=== PATIENT | female | born 1965 | race Caucasian/White ===

== ENCOUNTER 2016-12-01 11:48 | Emergency (ER) | payer OTHER ==
[~2016-12-01] VITALS: Ht 162.6 cm; Wt 68.0 kg
[~2016-12-01 11:48] MED LIST: ACET325T33 PO; FOLI-49 PO; LORA-441 PO; LOSA25TA5 PO; MULT-552 PO; PANT40TA3 PO; SPIR50TA PO; THIA100T56 PO
[2016-12-01] MEDS ORDERED: SOD CHLORIDE 0.9% 1,000 ML IV STA (11:49)
[2016-12-01] MEDS ORDERED: ONDANSETRON 4 MG INJ IV STA (11:49)
[2016-12-01 11:56] VITALS: Ht 162.6 cm; Wt 68.0 kg
[2016-12-01 12:29] LABS: ABNORMAL IP MESSAGE 1; BASOPHIL # 0.1 10^3/ul (0.0-0.1); BASOPHILS % 1.1 % (0.0-2.0); EOSINOPHILS # 0.2 10^3/ul (0.0-0.5); EOSINOPHILS % 1.7 % (0.0-7.0); HEMATOCRIT 35.3 % (37.0-47.0); HEMOGLOBIN 11.9 g/dl (12.0-16.0); LYMPHOCYTES # 2.6 10^3/ul (0.8-2.9); LYMPHOCYTES % 28.4 % (15.0-51.0); MEAN CORPUSCULAR HEMOGLOBIN 32.2 pg (29.0-33.0); MEAN CORPUSCULAR HGB CONC 33.7 g/dl (32.0-37.0); MEAN CORPUSCULAR VOLUME 95.7 fl (82.0-101.0); MEAN PLATELET VOLUME 11.9 fl (7.4-10.4); MONOCYTE # 1.6 10^3/ul (0.3-0.9); MONOCYTES % 17.3 % (0.0-11.0); NEUTROPHIL # 4.6 10^3/ul (1.6-7.5); NEUTROPHILS % 51.1 % (39.0-77.0); PLATELET COUNT 137 10^3/UL (140-415); RED BLOOD COUNT 3.69 10^6/ul (4.20-5.40); RED CELL DISTRIBUTION WIDTH 16.1 % (11.5-14.5); WHITE BLOOD COUNT 9.1 10^3/ul (4.8-10.8)
[2016-12-01 12:34] LABS: POSITIVE DIFF @See below
[2016-12-01 12:41] LABS: INR 1.19; PROTIME 15.2 Sec (12.2-14.2); PT RATIO 1.2
[2016-12-01 12:42] LABS: PARTIAL THROMBOPLASTIN TIME 36.2 Sec (25.0-35.0)
[2016-12-01 12:46] LABS: ALANINE AMINOTRANSFERASE 60 IU/L (13-69); ALBUMIN 4.3 g/dl (3.3-4.9); ALBUMIN/GLOBULIN RATIO 0.95; ALKALINE PHOSPHATASE 205 IU/L (42-121); ANION GAP 24 (8-16); ASPARTATE AMINO TRANSFERASE 159 IU/L (15-46); BILIRUBIN,INDIRECT 1.4 mg/dl (0-1.1); BILIRUBIN,TOTAL 1.4 mg/dl (0.2-1.3); BLOOD UREA NITROGEN 11 mg/dl (7-20); CALCIUM 8.9 mg/dl (8.4-10.2); CARBON DIOXIDE 23 mmol/L (21-31); CHLORIDE 106 mmol/L (97-110); GLUCOSE 85 mg/dl (70-220); POTASSIUM 3.7 mmol/L (3.5-5.1); SODIUM 149 mmol/L (135-144); TOTAL PROTEIN 8.8 g/dl (6.1-8.1)
[2016-12-01 12:47] LABS: ACETAMINOPHEN < 10.0 ug/ml (10.0-30.0); SALICYLATE < 1.0 mg/dl (5.0-30.0)
[2016-12-01 13:04] LABS: ADD UMIC YES; UR ASCORBIC ACID NEGATIVE (NEGATIVE); UR BILIRUBIN (Dip) NEGATIVE (NEGATIVE); UR BLOOD (Dip) 1+ mg/dL (NEGATIVE); UR CLARITY CLEAR (CLEAR); UR COLOR STRAW (YELLOW); UR GLUCOSE (Dip) NEGATIVE (NEGATIVE); UR KETONES (Dip) NEGATIVE (NEGATIVE); UR LEUKOCYTE ESTERASE (Dip) NEGATIVE Leu/ul (NEGATIVE); UR NITRITE (Dip) NEGATIVE (NEGATIVE); UR RBC 0 /HPF (0-5); UR SPECIFIC GRAVITY (Dip) 1.003 (1.003-1.030); UR TOTAL PROTEIN (Dip) NEGATIVE (NEGATIVE); UR UROBILINOGEN (Dip) NEGATIVE (NEGATIVE)
[2016-12-01 13:16] LABS: BARBITURATES NEGATIVE (NEGATIVE); BENZODIAZEPINES NEGATIVE (NEGATIVE); CANNABINOIDS NEGATIVE (NEGATIVE); COCAINE NEGATIVE (NEGATIVE); OPIATES NEGATIVE (NEGATIVE)
[2016-12-01] MEDS ORDERED: LORA1TAB PO (13:27)
[2016-12-01] MEDS ORDERED: POTA8TAB2 PO (13:27)
[2016-12-01] MEDS ORDERED: DICL75TA2 PO (13:28)
[2016-12-01] MEDS ORDERED: GABA100C14 PO (13:28)
[2016-12-01] MEDS ORDERED: ALBU18HF INHALATION (13:29)
[2016-12-01] MEDS ORDERED: PANT20TA3 PO (13:29)
[2016-12-01] MEDS ORDERED: MAGNESIUM SULFATE 2 GM, MULTIVITAMINS 10 ML, THIAMINE 100 MG, FOLIC ACID 1 MG in SOD CH... IV STA (14:12)
[2016-12-01 17:00] VITALS: BP 110/60; PULSE 65; RESP 14; TEMP 98.2
--- NOTE | 2016-12-16 16:58 | ERD ---
DATE OF SERVICE: CHIEF COMPLAINT: Intoxication. HISTORY OF PRESENT ILLNESS: This is a 51-year-old female, who was brought into the Emergency Department via EMS after she was found walking along the sidewalk. A bystander phoned 911. The patient indicated she had consumed a significant amount of alcohol prior to arrival. EMS indicated there was no signs of trauma or drug paraphernalia. The patient states that she drinks alcohol on a daily basis and was unable to quantify the amount of alcohol that she consumed just prior to arrival. The patient denies a headache, nausea, vomiting, or abdominal pain. She indicates there was no blunt or penetrating chest, head or abdominal trauma. She denies any history of alcohol withdrawal seizures. PAST MEDICAL HISTORY: Alcohol abuse. PAST SURGICAL HISTORY: The patient indicates several years ago, she experienced blunt trauma and had an exploratory laparotomy for suspected ruptured spleen. ALLERGIES: NO KNOWN DRUG ALLERGIES. SOCIAL HISTORY: Consumes alcohol on a daily basis in the setting of abuse. REVIEW OF SYSTEMS: All 12 systems were reviewed and the negative unless stated in the history of present illness. PHYSICAL EXAMINATION: VITAL SIGNS: Blood pressure a 115/65, respiratory rate 18, pulse rate 92, temperature 98.1, pulse ox 94 percent on room air. CONSTITUTIONAL: Well-developed, well-nourished female, sitting upright on the stretcher, no acute respiratory distress. HEENT: Normocephalic, atraumatic. No nasal septal hematoma. No hemotympanum. PUPILS: Equal, round, reactive to light. Moist mucous membranes. NECK: Supple. No masses. No tenderness. Trachea midline. No lymphadenopathy. LUNGS: Lungs are clear to auscultation bilaterally. No wheezing. No crackles. CARDIOVASCULAR: Regular rate, regular rhythm, S1, S2. No murmurs or rubs appreciated. Distal pulses are palpable 2+ bilaterally. Cap refill less than 2 seconds. ABDOMEN: Soft, nontender, nondistended. Bowel sounds are positive. No abdominal masses or bruits. No flank ecchymosis. No periumbilical ecchymosis. MUSCULOSKELETAL: Patient has full range of motion of all extremities. SKIN: Warm, dry, no cyanosis, diaphoresis, edema. No petechiae. No purpura. NEUROLOGICAL: Patient is alert, awake, following verbal commands, answering all questions appropriately. The patient had slurred speech, smelled of alcohol. Gait was ataxic. DIAGNOSTIC TEST INTERPRETATION: Pulse ox interpreted by myself as normal. The patient was hypoxic. She was satting 94 percent. However, she was in no acute respiratory distress. ANCILLARY LABORATORY WORK: There was no leukocytosis. White blood count 9.1. The patient had a normocytic anemia with a hemoglobin of 11.9. The patient was not coagulopathic. There was no evidence of urinary tract infection. Serum ethanol was elevated to 298. Serum acetaminophen and salicylate were normal. The patient's urine drug screen is positive for amphetamine, negative opiates. Serum sodium elevated at 149. No acute kidney injury. There is transaminitis with AST of 159. ALT normal at 656, consistent with patient's history of alcohol abuse. Blood glucose normal at 85. MEDICAL DECISION MAKING AND COURSE IN ED: Patient seen and evaluated by myself after presenting to Emergency Department with change in mental status, thought to be secondary to toxic encephalopathy. The patient had no signs of trauma to her head, chest or abdomen. Therefore, I did not feel it is necessary to do any radiographic imaging. The patient had IV access that was established by nursing staff. She received a L bolus of 0.9 normal saline. The patient remained in the Emergency Department until clinical sobriety. She denied any suicidal or homicidal thoughts or ideations. The patient received a social work consult. At the time of discharge, the patient was no longer ataxic and she was speaking appropriate complete sentences with no slurred speech. She also did receive 4 mg of Zofran intravenously when she first arrived, as she was complaining of nausea, but did not experience any hemoptysis, hematemesis, or melenic stools. She had no signs of impending delirium tremens. FINAL DISPOSITION: Patient is discharged home in fair condition. DISCHARGE INSTRUCTIONS: Return to the Emergency Department if her symptoms worsen. OVERALL CLINICAL IMPRESSION: 1. Alcohol intoxication. 2. Hypernatremia. 3. Transaminitis. Dictated By: Dot Martinez MD /[email or web address]/[email or web address] /Document#: [id number]
== END 2016-12-01 17:47 | disposition home or self-care (01) ==
LOC: E/R 11:48
DX: F10.120 Alcohol abuse with intoxication, uncomplicated (principal); E87.0 Hyperosmolality and hypernatremia; R74.0 Nonspecific elevation of levels of transaminase and lactic acid dehydrogenase [LDH]
CPT/HCPCS: 80053; 80306; 80307; 81001; 85025; 85610; 85730; 96374; 96375; J2405; J3411; J3475; J7030; Z7502; Z7610

== ENCOUNTER 2017-10-30 14:59 | Inpatient (IN) | END 2017-11-07 19:15 | disposition home or self-care (01) | DRG 378 ==

== ENCOUNTER 2017-12-06 16:46 | Emergency (ER) | END 2017-12-06 22:11 | disposition home or self-care (01) ==

== ENCOUNTER 2018-08-17 20:37 | Emergency (ER) | payer OTHER ==
[~2018-08-17] VITALS: Ht 157.5 cm; Wt 63.7 kg
[~2018-08-17 20:37] MED LIST changes: -ACET325T33 PO; +DULO30CA45 PO; +ERGO500013 PO; +FER325 PO; +GABA400C14 PO; +LACT10SO5 PO; -LORA-441 PO; -LOSA25TA5 PO; -MULT-552 PO; +PANT20TA3 PO; -PANT40TA3 PO; +POTA8TAB2 PO; +SPIR100T PO; -SPIR50TA PO; +TRAM50TA2 PO
[2018-08-17 20:42] VITALS: Ht 157.5 cm; Wt 63.7 kg
[2018-08-17] MEDS ORDERED: SOD CHLORIDE 0.9% 1,000 ML IV STA (22:48)
[2018-08-17] MEDS ORDERED: KETOROLAC 30 MG INJ IV STA (22:48)
[2018-08-17] MEDS ORDERED: DIPHENHYDRAMINE 50 MG INJ IV STA (22:48)
[2018-08-17] MEDS ORDERED: PROCHLORPERAZINE 10 MG INJ IV STA (22:48)
--- NOTE | 2018-08-18 00:14 | ERD ---
ER Documentation Chief Complaint Chief Complaint VITAL X3DAYS WITH RHINOROCKET REMOVAL X3DAYS HPI 52-year-old female presents with headache that she has had for 3 days since she had a Rhino Rocket placed in her right nostril. She is been having increased pain and pressure-like headache. No visual changes. No vomiting. No fever. No dizziness. No photosensitivity. ROS All systems reviewed and are negative except as per history of present illness. Medications Home Meds Active Scripts Spironolactone* (Aldactone*) 100 Mg Tablet, 100 MG PO DAILY, #30 TAB Prov:VIDYA PORRAS MD 12/06/17 Ergocalciferol (Vitamin D2) (VITAMIN D2) 50,000 Unit Capsule, 22690 UNIT PO Tu@09 for 28 Days, CAP Prov:GEREMIAS APPLE MD 11/07/17 Tramadol HCl (Tramadol HCl) 50 Mg Tablet, 50 MG PO TID PRN for PAIN for 7 Days, TAB Prov:GEREMIAS APPLE MD 11/07/17 Duloxetine Hcl* (Cymbalta*) 30 Mg Capsule.dr, 30 MG PO DAILY for 28 Days Prov:GEREMIAS APPLE MD 11/07/17 Ferrous Sulfate* (Ferrous Sulfate*) 325 Mg Tabec, 325 MG PO DAILY for 28 Days, TAB Prov:GEREMIAS APPLE MD 11/07/17 Potassium Chloride* (Klor-Con*) 8 Meq Tablet.sa, 8 MEQ PO DAILY for 28 Days, TAB Prov:GEREMIAS APPLE MD 11/07/17 Thiamine* (Vitamin B-1*) 100 Mg Tablet, 100 MG PO DAILY for 28 Days, TAB Prov:GEREMIAS APPLE MD 11/07/17 Folic Acid* (Folic Acid*) 1 Mg Tablet, 1 MG PO DAILY for 28 Days, TAB Prov:GEREMIAS APPLE MD 11/07/17 Reported Medications Pantoprazole* (Pantoprazole*) 20 Mg Tablet.dr, 20 MG PO DAILY, TAB 12/06/17 Lactulose* (Lactulose*) 10 Gm/15 Ml Solution, 30 ML PO BID, ML 12/06/17 Gabapentin* (Gabapentin*) 400 Mg Capsule, 400 MG PO TID, #90 CAP 12/06/17 Allergies Allergies: Coded Allergies: No Known Allergy (Unverified , 12/06/17) PMhx/Soc History of Surgery: Yes (abd surgery ) Anesthesia Reaction: No Hx Neurological Disorder: Yes (seizures ) Hx Respiratory Disorders: No Hx Cardiac Disorders: Yes (htn ) Hx Psychiatric Problems: No Hx Miscellaneous Medical Probl: Yes (KIDNEY FAILURE, HEP C, Ascites) Hx Alcohol Use: Yes Hx Substance Use: Yes Hx Tobacco Use: Yes Smoking Status: Current every day smoker FmHx Family History: No diabetes Physical Exam Vitals Vital Signs Date Temp Pulse Resp B/P (MAP) Pulse Ox O2 O2 Flow FiO2 Time Delivery Rate 08/17/18 98.7 97 18 143/64 97 20:42 (90) Physical Exam INITIAL VITAL SIGNS: Reviewed by me GENERAL: Awake, alert and oriented x 4, well appearing, nontoxic, speaking in full sentences. No acute distress HEAD: Atraumatic NECK: Supple. No masses. Full range of motion. No meningismus. No midline tenderness. EYES: EOMI. PERRL. NOSE: Rhino Rocket in place THROAT: No tonilar erythema or edema. No exudates. Uvula midline. No kissing tonsils. RESPIRATORY: Clear to auscultation bilaterally. Symmetric chest wall rise. No wheezing or rales. No accessory muscle use. CV: Regular rate and rhythm. No murmurs, rubs, or gallops. NEUROLOGIC: Normal mental status and speech. Face is symmetric. Moves all extremities equally. Motor and sensory distally intact. Normal coordination. Ambulates with a strong steady gait. [id number] within normal limits, rejogger strength 5 out of 5 Results 24 hrs Current Medications Medications Dose Sig/Caryn Start Time Status Last (Trade) Ordered Route PRN Stop Time Admin Dose Reason Admin Sodium 1,000 ml @ Q1H STAT 08/17/18 DC 08/17/18 Chloride 1,000 mls/hr IV 22:48 23:03 08/17/18 23:47 10 mg ONCE STAT 08/17/18 DC 08/17/18 Prochlorperaz IV 22:48 23:51 ine 08/17/18 22:50 (Compazine Inj) Ketorolac 15 mg ONCE STAT 08/17/18 DC 08/17/18 Tromethamine IV 22:48 23:04 (Toradol) 08/17/18 22:50 25 mg ONCE STAT 08/17/18 DC 08/17/18 Diphenhydrami IV 22:48 23:04 ne HCl 08/17/18 22:50 (Benadryl) Procedures/MDM The differential diagnosis includes but is not limited to subdural hematoma, epidural hematoma, intracerebral hemorrhage, occult trauma, CVA, meningitis, encephalitis, hypertension, tension, migraine, cluster, cervical spine disease, and others. Rhino Rocket was removed and the patient continued to have pain. Therefore CT scan was ordered which was nonacute. She felt better after IV fluids Compazine Benadryl and Toradol. Patient counseled regarding my diagnostic impression and care plan. Prior to discharge all questions answered. Pt agrees with treatment plan and understands strict return precautions. Pt is instructed to follow up with primary care provider within 24-48 hours. Precautionary instructions provided including instructions to return to the ER if not improving or for any worsening or changing symptoms or concerns. Departure Diagnosis: Primary Impression: Headache Condition: Stable Patient Instructions: Self-Care for Headaches Additional Instructions: Call your primary care doctor TOMORROW for an appointment during the next 1-2 days.See the doctor sooner or return here if your condition worsens before your appointment time. RADHA ELDRIDGE PA-C Aug 18, 2018 00:14
[2018-08-18 00:44] VITALS: BP 108/55; PULSE 84; RESP 16
== END 2018-08-18 00:46 | disposition home or self-care (01) ==
LOC: FTE 20:37
DX: R51 Headache (principal); I10 Essential (primary) hypertension; F17.210 Nicotine dependence, cigarettes, uncomplicated
CPT/HCPCS: 70450; 96361; 96374; 96375; J0780; J1200; J1885; J7030; Z7502